=== PATIENT | female | born 1995 | race Caucasian/White ===

== ENCOUNTER 2018-03-01 23:21 | Emergency (ER) | payer OTHER ==
[~2018-03-01] VITALS: Ht 157.5 cm; Wt 45.8 kg
[2018-03-02] MEDS ORDERED: MONISTAT 3 COM1 EACH VAG (05:31)
== END 2018-03-02 | disposition home or self-care (01) ==
LOC: ER 23:21 → EDBD 03-02 00:53
DX: B37.3 Candidiasis of vulva and vagina (principal); R10.2 Pelvic and perineal pain